=== PATIENT | male | born 1960 | race African-American/Black ===

== ENCOUNTER 2018-06-15 14:42 | Inpatient (IN) | payer OTHER ==
[2018-06-15 16:35] VITALS: BMI 23.1
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
[2018-06-15] MEDS ORDERED: NICOTINE POLACRILEX 2 MG GUM BUC PRN (18:29)
[2018-06-15] MEDS ORDERED: MAGNESIUM HYDROX 2400MG/30ML ORAL SUSPENSION 30 ML CUP PO PRN (18:29)
[2018-06-15] MEDS ORDERED: ACETAMINOPHEN 325 MG TABLET (FP) PO PRN ×2 (18:29)
[2018-06-15] MEDS ORDERED: chlordiazePOXIDE HCL 25 MG CAPSULE PO PRN (18:29)
[2018-06-15] MEDS ORDERED: MENTHOL/PHENOL 1 EACH UD MM PRN (18:29)
[2018-06-15] MEDS ORDERED: hydrOXYzine PAMOATE 25 MG CAPSULE (FP) PO PRN (18:29)
[2018-06-15] MEDS ORDERED: MAG HYDROX/AL HYDROX/SIMETH 30 ML UNIT-DOSE CUP PO PRN (18:29)
[2018-06-15] MEDS ORDERED: METHOCARBAMOL 500 MG TABLET PO PRN (18:29)
[2018-06-15] MEDS ORDERED: MAGNESIUM CITRATE 300 ML BOTTLE PO PRN (18:29)
[2018-06-15] MEDS ORDERED: IBUPROFEN 400 MG TABLET (FP) PO PRN (18:29)
[2018-06-15] MEDS ORDERED: BISMUTH SUBSALICYLATE 524 MG/30 ML UD PO PRN (18:29)
[2018-06-15] MEDS: MELATONIN 5 MG TABLETS PO PRN (22:03)
[2018-06-15] MEDS: chlordiazePOXIDE HCL 25 MG CAPSULE PO SCH (22:03)
[2018-06-15] MEDS: THIAMINE HCL 100 MG TABLET (FP) PO SCH (22:03)
[2018-06-15 23:46] LABS: URINE APPEARANCE CLEAR; URINE BILIRUBIN NEGATIVE (<2.0 mg/dL); URINE COLOR YELLOW; URINE GLUCOSE (UA) NEGATIVE (NEGATIVE); URINE KETONE NEGATIVE (NEGATIVE); URINE LEUK ESTERASE NEGATIVE (NEGATIVE); URINE NITRITE NEGATIVE (NEGATIVE); URINE PROTEIN NEGATIVE (NEGATIVE)
[2018-06-16] MEDS: chlordiazePOXIDE HCL 25 MG CAPSULE PO SCH ×4 (05:26→22:07)
--- NOTE | 2018-06-16 09:12 | CONSULT ---
[facility] Psychiatric Consult - Data Date of interview: 06/16/18 Admission source: [facility] Identifying data: Patient is a 58 year old single male, father of one, unemployed, domiciled, and is supported by [facility]. This is patient's first admission to detox at [facility]. Patient admitted to for alcohol, cocaine, and marijuana dependence. Substance Abuse History: Smoking Cessation. Smoking history: Current every day smoker. Have you smoked in the past 12 months: Yes. Aproximately how many cigarettes per day: 8. Hx Chewing Tobacco Use: No. Initiated information on smoking cessation: Yes. 'Breaking Loose' booklet given: 06/15/18. - Substance & Tx. History. Hx Alcohol Use: Yes. Hx Substance Use: Yes. Substance Use Type : Alcohol. Hx Substance Use Treatment: Yes (Last detox [facility] 2015) . - Substances Abused. Alcohol. Route: Oral. Frequency: Daily. Amount used: liquor- 3 pints, beer- 2 six packs. Age of first use: 14. Date of Last Use: 06/14/18 (10:30 pm ). Crack. Route: Smoking. Frequency: Daily. Amount used: 3gm. Age of first use: 23. Date of Last Use: 06/14/18. Marijuana/Hashish. Route: Smoking. Frequency: Daily. Amount used: 4gm. Age of first use: 17. Date of Last Use: 06/14/18 Medical History: Hep B, HIV Psychiatric History: Patient's first psychiatric contact was in 2005 after he became depressed due to his newly diagnosis of HIV. He saw an outpatient psychiatrist for approximately one year and reports being prescribed seroquel. Since discontinuing treatment in 2006 he denies seeing another psychiatrist. Ms. Luis denies h/o psychiatric hospitalization, and suicide attempt. At present he reports difficulty sleeping. Physical/Sexual Abuse/Trauma History: denies. Mental Status Exam - Mental Status Exam Alert and Oriented to: Time, Place, Person Cognitive Function: Good Patient Appearance: Well Groomed Mood: Euthymic Affect: Mood Congruent Patient Behavior: Cooperative Speech Pattern: Appropriate Voice Loudness: Normal Thought Process: Intact, Goal Oriented Thought Disorder: Not Present Hallucinations: Denies Suicidal Ideation: Denies Homicidal Ideation: Denies Insight/Judgement: Poor Sleep: Poorly Appetite: Fair Muscle strength/Tone: Normal Gait/Station: Normal Psychiatric Findings - Problem List ([place] 1, 2,3) (1) Substance-induced sleep disorder Current Visit: Yes Status: Acute (2) Alcohol dependence with uncomplicated withdrawal Current Visit: Yes Status: Acute (3) Cocaine dependence Current Visit: Yes Status: Acute (4) Marijuana dependence Current Visit: Yes Status: Acute - Initial Treatment Plan Initial Treatment Plan: Psychoeducation provided. Detoxification in progress. Will order Belsomra 10mg qhs prn. Benefits and side effects discussed. Verbal consent given.
[2018-06-16] MEDS: LIDOCAINE 5% TOPICAL PATCH TP SCH (10:02)
[2018-06-16] MEDS: PRENATAL VITAMINS W/ FOLIC ACID TABLET (FP) PO SCH (10:02)
[2018-06-16] MEDS: NICOTINE 14 MG/24 HOURS TOPICAL PATCH TD SCH (10:02)
--- NOTE | 2018-06-16 10:50 | EKG ---
Test Reason : Blood Pressure : / mmHG Vent. Rate : 074 BPM Atrial Rate : 074 BPM P-R Int : 138 ms QRS Dur : 088 ms QT Int : 378 ms P-R-T Axes : 076 072 054 degrees QTc Int : 419 ms NORMAL SINUS RHYTHM MINIMAL VOLTAGE CRITERIA FOR LVH, MAY BE NORMAL VARIANT NO PREVIOUS ECGS AVAILABLE Confirmed by ANSON PEREZ MD ([id number]) on 06/16/2018 10:50:00 AM Referred By: LORENA MANE Confirmed By:ANSON PEREZ MD
[2018-06-16 11:25] LABS: HEMATOCRIT 37.9 % (35.4-49); HEMOGLOBIN 12.5 GM/dL (11.7-16.9); MCH 28.5 pg (25.7-33.7); MEAN CELL VOLUME 86.3 fl (80-96); MEAN PLT VOLUME 8.1 fl (7.5-11.1); PLATELET COUNT 175 K/MM3 (134-434); RBC 4.39 M/mm3 (4.00-5.60); RDW 15.8 % (11.9-15.9); WHITE BLOOD COUNT 1.8 K/mm3 (4.0-10.0)
[2018-06-16 11:51] LABS: ALBUMIN 2.9 g/dl (3.4-5.0); ALK PHOS 65 U/L (45-117); ANION GAP 5 MMOL/L (8-16); BILIRUBIN,TOTAL 0.3 mg/dL (0.2-1); BLOOD UREA NITROGEN 10 mg/dL (7-18); CALCIUM 8.4 mg/dL (8.5-10.1); CHLORIDE 106 mmol/L (98-107); CO2 27 mmol/L (21-32); CREATININE 0.9 mg/dL (0.55-1.3); GLUCOSE,RANDOM 101 mg/dL (74-106); POTASSIUM 3.9 mmol/L (3.5-5.1); SGOT/AST 23 U/L (15-37); SGPT/ALT 22 U/L (13-61); SODIUM 137 mmol/L (136-145); TOT PROT 6.9 g/dl (6.4-8.2)
--- NOTE | 2018-06-16 14:29 | PN ---
S CIWA - CIWA Score Nausea/Vomitin-Mild Nausea/No Vomiting Muscle Tremors: 1-None Visible, but [place] Anxiety: 1-Mildly Anxious Agitation: 1-Slight > Activity Paroxysmal Sweats: No Perspiration Orientation: 0-Oriented Tacttile Disturbances: 0-None Auditory Disturbances: 0-None Visual Disturbances: 0-None Headache: 0-None Present CIWA-Ar Total Score: 4 [facility] Progress Note (SOAP) Subjective: pt came in yesterday for alcohol detox- states he feels OK on alcohol detox protocol O: Vital Signs - 24 hr 06/15/18 06/15/18 06/15/18 16:34 19:23 22:15 Temperature 97.5 F L 98.1 F 98.2 F Pulse Rate 79 74 80 Respiratory 18 18 18 Rate Blood Pressure 117/69 144/78 139/66 06/16/18 06/16/18 06/16/18 00:30 03:30 06:00 Temperature 97.7 F Pulse Rate 74 Respiratory 18 18 18 Rate Blood Pressure 129/75 06/16/18 06/16/18 09:22 13:54 Temperature 97.5 F L 96.4 F L Pulse Rate 78 74 Respiratory 18 18 Rate Blood Pressure 100/57 L 127/64 Laboratory Tests 06/15/18 06/16/18 06/16/18 22:00 07:00 07:00 WBC 1.8 L* RBC 4.39 Hgb 12.5 Hct 37.9 MCV 86.3 MCH 28.5 MCHC 33.0 RDW 15.8 Plt Count 175 MPV 8.1 Sodium 137 Potassium 3.9 Chloride 106 Carbon Dioxide 27 Anion Gap 5 L BUN 10 Creatinine 0.9 Creat Clearance w eGFR 87.29 Random Glucose 101 Calcium 8.4 L Total Bilirubin 0.3 AST 23 ALT 22 Alkaline Phosphatase 65 Total Protein 6.9 Albumin 2.9 L Urine Color Yellow Urine Appearance Clear Urine pH 6.0 Ur Specific [employer] 1.022 Urine Protein Negative Urine Glucose (UA) Negative Urine Ketones Negative Urine Blood Negative Urine Nitrite Negative Urine Bilirubin Negative Urine Urobilinogen 1.0 Ur Leukocyte Esterase Negative RPR Titer 06/16/18 07:00 WBC RBC Hgb Hct MCV MCH MCHC RDW Plt Count MPV Sodium Potassium Chloride Carbon Dioxide Anion Gap BUN Creatinine Creat Clearance w eGFR Random Glucose Calcium Total Bilirubin AST ALT Alkaline Phosphatase Total Protein Albumin Urine Color Urine Appearance Urine pH Ur Specific [employer] Urine Protein Urine Glucose (UA) Urine Ketones Urine Blood Urine Nitrite Urine Bilirubin Urine Urobilinogen Ur Leukocyte Esterase RPR Titer Nonreactive low WBC- pt with HIV low alb low Ca- a/p: continue alcohol detox protocol-low WBC likely due to HIV/AIDS- repeat tomorrow with diff, f/u with PCP at discharge
[2018-06-16] MEDS ORDERED: SUVOREXANT 10 MG TABLET PO PRN (22:00)
[2018-06-16] MEDS: THIAMINE HCL 100 MG TABLET (FP) PO SCH (22:07)
[2018-06-16] MEDS: LIDOCAINE PATCH REMOVAL MC SCH (22:08)
[2018-06-17] MEDS: chlordiazePOXIDE HCL 25 MG CAPSULE PO SCH ×3 (05:58→17:33)
[2018-06-17] MEDS: NICOTINE 14 MG/24 HOURS TOPICAL PATCH TD SCH (10:32)
[2018-06-17] MEDS: LIDOCAINE 5% TOPICAL PATCH TP SCH ×2 (10:32→10:35)
[2018-06-17] MEDS: PRENATAL VITAMINS W/ FOLIC ACID TABLET (FP) PO SCH (10:33)
--- NOTE | 2018-06-17 10:51 | PN ---
[facility] CIWA - CIWA Score Nausea/Vomitin-No Nausea/No Vomiting Muscle Tremors: 2 Anxiety: 2 Agitation: 2 Paroxysmal Sweats: 2 Orientation: 0-Oriented Tacttile Disturbances: 0-None Auditory Disturbances: 0-None Visual Disturbances: 0-None Headache: 0-None Present CIWA-Ar Total Score: 8 S Progress Note (SOAP) Subjective: back pain Objective: 06/17/18 10:51 Vital Signs Temperature 97.3 F L 06/17/18 09:36 Pulse Rate 82 06/17/18 09:36 Respiratory Rate 18 06/17/18 09:36 Blood Pressure 136/73 06/17/18 09:36 O2 Sat by Pulse Oximetry (%) Laboratory Last Values WBC 1.8 K/mm3 (4.0-10.0) L* 06/16/18 07:00 RBC 4.39 M/mm3 (4.00-5.60) 06/16/18 07:00 Hgb 12.5 GM/dL (11.7-16.9) 06/16/18 07:00 Hct 37.9 % (35.4-49) 06/16/18 07:00 MCV 86.3 fl (80-96) 06/16/18 07:00 MCH 28.5 pg (25.7-33.7) 06/16/18 07:00 MCHC 33.0 g/dl (32.0-35.9) 06/16/18 07:00 RDW 15.8 % (11.9-15.9) 06/16/18 07:00 Plt Count 175 K/MM3 (134-434) 06/16/18 07:00 MPV 8.1 fl (7.5-11.1) 06/16/18 07:00 Sodium 137 mmol/L (136-145) 06/16/18 07:00 Potassium 3.9 mmol/L (3.5-5.1) 06/16/18 07:00 Chloride 106 mmol/L (98-107) 06/16/18 07:00 Carbon Dioxide 27 mmol/L (21-32) 06/16/18 07:00 Anion Gap 5 MMOL/L (8-16) L 06/16/18 07:00 BUN 10 mg/dL (7-18) 06/16/18 07:00 Creatinine 0.9 mg/dL (0.55-1.3) 06/16/18 07:00 Creat Clearance w eGFR 87.29 (>60) 06/16/18 07:00 Random Glucose 101 mg/dL (74-106) 06/16/18 07:00 Calcium 8.4 mg/dL (8.5-10.1) L 06/16/18 07:00 Total Bilirubin 0.3 mg/dL (0.2-1) 06/16/18 07:00 AST 23 U/L (15-37) 06/16/18 07:00 ALT 22 U/L (13-61) 06/16/18 07:00 Alkaline Phosphatase 65 U/L (45-117) 06/16/18 07:00 Total Protein 6.9 g/dl (6.4-8.2) 06/16/18 07:00 Albumin 2.9 g/dl (3.4-5.0) L 06/16/18 07:00 Urine Color Yellow 06/15/18 22:00 Urine Appearance Clear 06/15/18 22:00 Urine pH 6.0 (5.0-8.0) 06/15/18 22:00 Ur Specific [place] 1.022 (1.010-1.035) 06/15/18 22:00 Urine Protein Negative (NEGATIVE) 06/15/18 22:00 Urine Glucose (UA) Negative (NEGATIVE) 06/15/18 22:00 Urine Ketones Negative (NEGATIVE) 06/15/18 22:00 Urine Blood Negative (NEGATIVE) 06/15/18 22:00 Urine Nitrite Negative (NEGATIVE) 06/15/18 22:00 Urine Bilirubin Negative (<2.0 mg/dL) 06/15/18 22:00 Urine Urobilinogen 1.0 mg/dL (0.2-1.0) 06/15/18 22:00 Ur Leukocyte Esterase Negative (NEGATIVE) 06/15/18 22:00 RPR Titer Nonreactive (NONREACTIVE) 06/16/18 07:00 repeat labs pending 06/17/18 14:30 Assessment: 06/17/18 14:30 AOx3 no distress full ROM ambulating in the unit withdrawal sx increase po fluids continue detox continue to monitor
[2018-06-17 11:05] LABS: BASO % 0.6 % (0-2.0); EOS % 0.5 % (0-4.5); HEMATOCRIT 37.9 % (35.4-49); HEMOGLOBIN 12.3 GM/dL (11.7-16.9); LYMPH % 40.4 % (8-40); MCH 27.9 pg (25.7-33.7); MCHC 32.4 g/dl (32.0-35.9); MEAN CELL VOLUME 86.2 fl (80-96); MEAN PLT VOLUME 8.4 fl (7.5-11.1); MONO % 14.3 % (3.8-10.2); NEUT % 44.2 % (42.8-82.8); PLATELET COUNT 173 K/MM3 (134-434); RDW 15.5 % (11.9-15.9)
--- NOTE | 2018-06-17 14:31 | PN ---
[facility] Progress Note Note: Vital Signs Temperature 97.5 F L 06/17/18 13:32 Pulse Rate 75 06/17/18 13:32 Respiratory Rate 16 06/17/18 13:32 Blood Pressure 147/78 06/17/18 13:32 O2 Sat by Pulse Oximetry (%) Laboratory Last Values WBC 2.0 K/mm3 (4.0-10.0) L 06/17/18 07:30 RBC 4.40 M/mm3 (4.00-5.60) 06/17/18 07:30 Hgb 12.3 GM/dL (11.7-16.9) 06/17/18 07:30 Hct 37.9 % (35.4-49) 06/17/18 07:30 MCV 86.2 fl (80-96) 06/17/18 07:30 MCH 27.9 pg (25.7-33.7) 06/17/18 07:30 MCHC 32.4 g/dl (32.0-35.9) 06/17/18 07:30 RDW 15.5 % (11.9-15.9) 06/17/18 07:30 Plt Count 173 K/MM3 (134-434) 06/17/18 07:30 MPV 8.4 fl (7.5-11.1) 06/17/18 07:30 Absolute Neuts (auto) 0.9 K/mm3 (1.5-8.0) L 06/17/18 07:30 Neutrophils % 44.2 % (42.8-82.8) 06/17/18 07:30 Lymphocytes % 40.4 % (8-40) H 06/17/18 07:30 Monocytes % 14.3 % (3.8-10.2) H 06/17/18 07:30 Eosinophils % 0.5 % (0-4.5) 06/17/18 07:30 Basophils % 0.6 % (0-2.0) 06/17/18 07:30 Nucleated RBC % 0 % (0-0) 06/17/18 07:30 Sodium 137 mmol/L (136-145) 06/16/18 07:00 Potassium 3.9 mmol/L (3.5-5.1) 06/16/18 07:00 Chloride 106 mmol/L (98-107) 06/16/18 07:00 Carbon Dioxide 27 mmol/L (21-32) 06/16/18 07:00 Anion Gap 5 MMOL/L (8-16) L 06/16/18 07:00 BUN 10 mg/dL (7-18) 06/16/18 07:00 Creatinine 0.9 mg/dL (0.55-1.3) 06/16/18 07:00 Creat Clearance w eGFR 87.29 (>60) 06/16/18 07:00 Random Glucose 101 mg/dL (74-106) 06/16/18 07:00 Calcium 8.4 mg/dL (8.5-10.1) L 06/16/18 07:00 Total Bilirubin 0.3 mg/dL (0.2-1) 06/16/18 07:00 AST 23 U/L (15-37) 06/16/18 07:00 ALT 22 U/L (13-61) 06/16/18 07:00 Alkaline Phosphatase 65 U/L (45-117) 06/16/18 07:00 Total Protein 6.9 g/dl (6.4-8.2) 06/16/18 07:00 Albumin 2.9 g/dl (3.4-5.0) L 06/16/18 07:00 Urine Color Yellow 06/15/18 22:00 Urine Appearance Clear 06/15/18 22:00 Urine pH 6.0 (5.0-8.0) 06/15/18 22:00 Ur Specific [place] 1.022 (1.010-1.035) 06/15/18 22:00 Urine Protein Negative (NEGATIVE) 06/15/18 22:00 Urine Glucose (UA) Negative (NEGATIVE) 06/15/18 22:00 Urine Ketones Negative (NEGATIVE) 06/15/18 22:00 Urine Blood Negative (NEGATIVE) 06/15/18 22:00 Urine Nitrite Negative (NEGATIVE) 06/15/18 22:00 Urine Bilirubin Negative (<2.0 mg/dL) 06/15/18 22:00 Urine Urobilinogen 1.0 mg/dL (0.2-1.0) 06/15/18 22:00 Ur Leukocyte Esterase Negative (NEGATIVE) 06/15/18 22:00 RPR Titer Nonreactive (NONREACTIVE) 03/22/19 07:00 WBC improved from 1.8 to 2.0 patient reports no symptoms at this time continue to monitor Patient to follow up with primary care provider upon discharge
[2018-06-17] MEDS: LIDOCAINE PATCH REMOVAL MC SCH (22:09)
[2018-06-17] MEDS: chlordiazePOXIDE HCL 10 MG CAPSULE PO SCH (22:09)
[2018-06-17] MEDS: MELATONIN 5 MG TABLETS PO PRN (22:09)
[2018-06-17] MEDS: THIAMINE HCL 100 MG TABLET (FP) PO SCH (22:09)
[2018-06-17] MEDS ORDERED: chlordiazePOXIDE HCL 10 MG CAPSULE PO PRN (23:00)
[2018-06-18] MEDS: chlordiazePOXIDE HCL 10 MG CAPSULE PO SCH ×3 (05:53→17:24)
[2018-06-18] MEDS: PRENATAL VITAMINS W/ FOLIC ACID TABLET (FP) PO SCH (10:28)
[2018-06-18] MEDS: LIDOCAINE 5% TOPICAL PATCH TP SCH (10:28)
[2018-06-18] MEDS: NICOTINE 14 MG/24 HOURS TOPICAL PATCH TD SCH (10:28)
--- NOTE | 2018-06-18 16:07 | PN ---
[facility] Progress Note (SOAP) Subjective: Feels extremely tired Objective: 06/18/18 16:06 Last Vital Signs Temp Pulse Resp BP Pulse Ox 97.9 F 77 18 131/83 06/18/18 13:14 06/18/18 13:14 06/18/18 13:14 06/18/18 13:14 Laboratory Tests 06/15/18 06/16/18 06/16/18 22:00 07:00 07:00 WBC 1.8 L* RBC 4.39 Hgb 12.5 Hct 37.9 MCV 86.3 MCH 28.5 MCHC 33.0 RDW 15.8 Plt Count 175 MPV 8.1 Absolute Neuts (auto) Neutrophils % Lymphocytes % Monocytes % Eosinophils % Basophils % Nucleated RBC % Sodium 137 Potassium 3.9 Chloride 106 Carbon Dioxide 27 Anion Gap 5 L BUN 10 Creatinine 0.9 Creat Clearance w eGFR 87.29 Random Glucose 101 Calcium 8.4 L Total Bilirubin 0.3 AST 23 ALT 22 Alkaline Phosphatase 65 Total Protein 6.9 Albumin 2.9 L Urine Color Yellow Urine Appearance Clear Urine pH 6.0 Ur Specific [place] 1.022 Urine Protein Negative Urine Glucose (UA) Negative Urine Ketones Negative Urine Blood Negative Urine Nitrite Negative Urine Bilirubin Negative Urine Urobilinogen 1.0 Ur Leukocyte Esterase Negative RPR Titer 06/16/18 06/17/18 07:00 07:30 WBC 2.0 L RBC 4.40 Hgb 12.3 Hct 37.9 MCV 86.2 MCH 27.9 MCHC 32.4 RDW 15.5 Plt Count 173 MPV 8.4 Absolute Neuts (auto) 0.9 L Neutrophils % 44.2 Lymphocytes % 40.4 H Monocytes % 14.3 H Eosinophils % 0.5 Basophils % 0.6 Nucleated RBC % 0 Sodium Potassium Chloride Carbon Dioxide Anion Gap BUN Creatinine Creat Clearance w eGFR Random Glucose Calcium Total Bilirubin AST ALT Alkaline Phosphatase Total Protein Albumin Urine Color Urine Appearance Urine pH Ur Specific [place] Urine Protein Urine Glucose (UA) Urine Ketones Urine Blood Urine Nitrite Urine Bilirubin Urine Urobilinogen Ur Leukocyte Esterase RPR Titer Nonreactive Labs reviewed Assessment: 06/18/18 16:07 Withdrawal symptoms Plan: Continue detox Encouraged PO water intake
--- NOTE | 2018-06-18 22:10 | PN ---
[facility] Progress Note Note: 1 was notified by Ms. Manju Grullon that patient was tarchycardic. EkG ordered and indicates Supraventricular tachycardia with occasiona prematue ventricular complexes. Patient is being sent to ER for further evaluation. Endorsed to Dr. Miller Vital Signs Temperature 97.9 F 06/18/18 22:09 Pulse Rate 149 H 06/18/18 22:09 Respiratory Rate 18 06/18/18 22:09 Blood Pressure 108/61 06/18/18 22:10 O2 Sat by Pulse Oximetry (%)
[2018-06-18 22:11] VITALS: PULSE 149; TEMP 97.9
[2018-06-18 22:12] VITALS: BP 108/61
[2018-06-18] MEDS: LIDOCAINE PATCH REMOVAL MC SCH (22:48)
[2018-06-18] MEDS: THIAMINE HCL 100 MG TABLET (FP) PO SCH (22:50)
[2018-06-18] MEDS ORDERED: chlordiazePOXIDE HCL 10 MG CAPSULE PO SCH (23:00)
--- NOTE | 2018-06-19 00:53 | HP ---
CHIEF COMPLAINT: PCP: HISTORY OF PRESENT ILLNESS: ER course was notable for: (1) (2) (3) Recent Travel: PAST MEDICAL HISTORY: PAST SURGICAL HISTORY: Social History: Smoking: Alcohol: Drugs: Family History: Allergies Pork/Porcine Containing Products Allergy (Verified 06/18/18 23:12) HOME MEDICATIONS: Home Medications Medication Instructions Recorded Elviteg/Cob/Emtri/Tenof Alafen 1 each PO DAILY 06/15/18 [Genvoya (Non-Formulary)] Zolpidem Tartrate [Ambien] 10 mg PO HS 06/15/18 REVIEW OF SYSTEMS CONSTITUTIONAL: Absent: fever, chills, diaphoresis, generalized weakness, malaise, loss of appetite, weight change HEENT: Absent: rhinorrhea, nasal congestion, throat pain, throat swelling, difficulty swallowing, mouth swelling, ear pain, eye pain, visual changes CARDIOVASCULAR: Absent: chest pain, syncope, palpitations, irregular heart rate, lightheadedness , peripheral edema RESPIRATORY: Absent: cough, shortness of breath, dyspnea with exertion, orthopnea, wheezing, stridor, hemoptysis GASTROINTESTINAL: Absent: abdominal pain, abdominal distension, nausea, vomiting, diarrhea, constipation, melena, hematochezia GENITOURINARY: Absent: dysuria, frequency, urgency, hesitancy, hematuria, flank pain, genital pain MUSCULOSKELETAL: Absent: myalgia, arthralgia, joint swelling, back pain, neck pain SKIN: Absent: rash, itching, pallor HEMATOLOGIC/IMMUNOLOGIC: Absent: easy bleeding, easy bruising, lymphadenopathy, frequent infections ENDOCRINE: Absent: unexplained weight gain, unexplained weight loss, heat intolerance, cold intolerance NEUROLOGIC: Absent: headache, focal weakness or paresthesias, dizziness, unsteady gait, seizure, mental status changes, bladder or bowel incontinence PSYCHIATRIC: Absent: anxiety, depression, suicidal or homicidal ideation, hallucinations. PHYSICAL EXAMINATION Vital Signs - 24 hr 06/18/18 06/18/18 06/18/18 03:30 06:00 06:30 Temperature 96.8 F L Pulse Rate 72 Respiratory 18 18 18 Rate Blood Pressure 134/65 06/18/18 06/18/18 06/18/18 10:00 13:14 17:44 Temperature 96.6 F L 97.9 F 98.3 F Pulse Rate 75 77 93 H Respiratory 18 18 18 Rate Blood Pressure 136/74 131/83 118/71 06/18/18 06/18/18 22:09 22:10 Temperature 97.9 F Pulse Rate 149 H Respiratory 18 Rate Blood Pressure 139/69 108/61 GENERAL: Awake, alert, and fully oriented, in no acute distress. HEAD: Normal with no signs of trauma. EYES: Pupils equal, round and reactive to light, extraocular movements intact, sclera anicteric, conjunctiva clear. No lid lag. EARS, NOSE, THROAT: Ears normal, nares patent, oropharynx clear without exudates. Moist mucous membranes. NECK: Normal range of motion, supple without lymphadenopathy, JVD, or masses. LUNGS: Breath sounds equal, clear to auscultation bilaterally. No wheezes, and no crackles. No accessory muscle use. HEART: Regular rate and rhythm, normal S1 and S2 without murmur, rub or gallop. ABDOMEN: Soft, nontender, not distended, normoactive bowel sounds, no guarding, no rebound, no masses. No hepatomegaly or splenomegaly. MUSCULOSKELETAL: Normal range of motion at all joints. No bony deformities or tenderness. No CVA tenderness. UPPER EXTREMITIES: 2+ pulses, warm, well-perfused. No cyanosis. No clubbing. No peripheral edema. LOWER EXTREMITIES: 2+ pulses, warm, well-perfused. No calf tenderness. No peripheral edema. NEUROLOGICAL: Cranial nerves II-XII intact. Normal speech. Normal gait. PSYCHIATRIC: Cooperative. Good eye contact. Appropriate mood and affect. SKIN: Warm, dry, normal turgor, no rashes or lesions noted, normal capillary refill. ASSESSMENT/PLAN:
--- NOTE | 2018-06-19 10:27 | EKG ---
Test Reason : Blood Pressure : / mmHG Vent. Rate : 145 BPM Atrial Rate : 141 BPM P-R Int : 000 ms QRS Dur : 090 ms QT Int : 286 ms P-R-T Axes : 000 068 007 degrees QTc Int : 444 ms SUPRAVENTRICULAR TACHYCARDIA WITH OCCASIONAL PREMATURE VENTRICULAR COMPLEXES VOLTAGE CRITERIA FOR LEFT VENTRICULAR HYPERTROPHY NONSPECIFIC ST ABNORMALITY ABNORMAL ECG WHEN COMPARED WITH ECG OF 15-JUN-2018 18:03, PREMATURE VENTRICULAR COMPLEXES ARE NOW PRESENT VENT. RATE HAS INCREASED BY 71 BPM Confirmed by GARETH LANGLEY MD ([id number]) on 06/19/2018 10:26:47 AM Referred By: Confirmed By:GARETH LANGLEY MD
== END 2018-06-19 07:30 | disposition short-term general hospital (02) | DRG 774 ==
LOC: YASAS 14:42 → Y6N 18:07
PROVIDERS: ADMIT Surgery; ATTEND Surgery
PROC: HZ2ZZZZ Detoxification Services for Substance Abuse Treatment (ICD-10-PCS; principal; 2018-06-15)
DX: F10.230 Alcohol dependence with withdrawal, uncomplicated (principal); F14.20 Cocaine dependence, uncomplicated; F12.20 Cannabis dependence, uncomplicated; F17.210 Nicotine dependence, cigarettes, uncomplicated; F19.282 Other psychoactive substance dependence with psychoactive substance-induced sleep disorder; F32.9 Major depressive disorder, single episode, unspecified; Z21 Asymptomatic human immunodeficiency virus [HIV] infection status; G47.00 Insomnia, unspecified; M54.31 Sciatica, right side; R63.4 Abnormal weight loss; Z68.23 Body mass index [BMI] 23.0-23.9, adult
CPT/HCPCS: 36415; 71046-TC-FY; 80053; 81003; 85025; 85027; 86593; 93005; 93010

== ENCOUNTER 2018-06-18 22:19 | Observation (INO) | payer OTHER ==
--- NOTE | 2018-06-18 22:28 | PDOC ---
History of Present Illness - General Stated Complaint: TACHYCARDIA, BACK PAIN Time Seen by Provider: 06/18/18 22:28 - History of Present Illness Initial Comments: Coy Luis is a 58yo man with a PMH of HIV and polysubstance abuse (crack cocaine, marijuana, alcohol, cigarettes) who presents from [facility] with asymptomatic tachycardia. He reports that he was admitted at detox several days ago and has been doing well since that time. Tonight, staff was checking routine vitals and noted a HR in the 150's. Mr Luis reports it was as high as 163 at one point this evening. He had an EKG completed at [facility] indicating SVT with several PVCs noted, and he was sent to the ED for further evaluation. Mr Luis states that he had no idea his heart rate was fast until he was told. He denies any sensation of his heart racing, palpitations, SOB, lightheadedness, chest pain, diaphoresis, or any other new symptom. He denies any drug use over the past day, saying that he last used cocaine on the . He reports doing well at detox on the prescribed meds and has not had any shaking, nausea, vomiting, change in bowel habits, or other problems. He says that he has been on HIV meds for many years and "takes them when he has them" but often does not have his meds available because he is "on the street getting high." Recently he has not been consistently taking his meds, and he is not sure what his t-cell count or viral load are at this point. He denies any symptoms of infection, however, including fever/chills, cough, rash, dysuria, or congestion. Past History - Past Medical History Allergies/Adverse Reactions: Allergies Allergy/AdvReac Type Severity Reaction Status Date / Time Pork/Porcine Containing Allergy Verified 06/18/18 23:12 Products Home Medications: Ambulatory Orders Elviteg/Cob/Emtri/Tenof Alafen [Genvoya (Non-Formulary)] 1 each PO DAILY Zolpidem Tartrate [Ambien] 10 mg PO HS 06/15/18 Anemia: No Asthma: No Cancer: No Cardiac Disorders: No CVA: No COPD: No CHF: No Dementia: No Diabetes: No GI Disorders: No Disorders: No HTN: No Hypercholesterolemia: No Kidney Stones: No Liver Disease: Yes (hep B ) Seizures: No Thyroid Disease: No - Surgical History Abdominal Surgery: No Appendectomy: No Cardiac Surgery: No Cholecystectomy: No Lung Surgery: No Neurologic Surgery: No Orthopedic Surgery: No - Reproductive History Testicular Surgery: No - Suicide/Smoking/Psychosocial Hx Smoking History: Current every day smoker Have you smoked in the past 12 months: Yes Number of Cigarettes Smoked Daily: 8 'Breaking Loose' booklet given: 06/15/18 Hx Alcohol Use: Yes Drug/Substance Use Hx: Yes Substance Use Type: Alcohol Hx Substance Use Treatment: Yes (Last detox [facility] 2016) Review of Systems - Review of Systems Comments:: General: No fevers, no chills, no weight or appetite change, no malaise HEENT: No changes in vision, no changes in hearing, no congestion, no sore throat CV: No chest pain, no palpitations, no LE edema Pulm: No SOB, no cough, no wheezing GI: No nausea or vomiting, no change in bowel habits, no melena : No frequency, no urgency, no dysuria Musc: No back pain, no joint swelling, no recent injury Skin: No rash, no lesions, no erythema Endo: No excessive thirst, no heat/cold intolerance Heme: No unusual bruising or bleeding, no swollen glands Neuro: No syncope, no numbness/tingling, no focal weakness Vasc: No claudication Psych: No recent change in mood, no SI or HI *Physical Exam - Physical Exam Comments: General: Comfortable, no acute distress HEENT: PERRL, EOMI, MMM, voice normal, normal neck ROM Cards: Tachycardic, regular Pulm: Comfortable on room air, clear to auscultation bilaterally Abd: Soft, nontender, nondistended : No CVA tenderness Ext: Atraumatic. No LE edema. ROM intact Vasc: Extremities WWP. Skin: Normal color, no rashes or lesions Neuro: A&Ox3, CN grossly intact, normal speech, motor/sensory grossly intact and symmetric Psych: Mood appropriate to situation ED Treatment Course - LABORATORY CBC & Chemistry Diagram: 06/18/18 23:15 06/18/18 23:15 Medical Decision Making - Medical Decision Making 06/18/18 23:24 Coy Luis is a 58yo man with a PMH of HIV and polysubstance abuse (crack cocaine, marijuana, alcohol, cigarettes) who presents from [facility] with asymptomatic SVT, HR around 150. - Has been admitted at detox for 3 days, denies any cocaine use since 06/14 - Other than tachycardia, benign physical exam - EKG completed. SVT, HR 147, normal axis. Regular but p-waves difficult to see due to rate - CBC, CMP, trop, CXR ordered - Continuous cardiac monitoring - Plan to give adenosine 06/18/18 23:44 - Initial adenosine given without Dr Matthews or me present. Per nursing staff in the room, no change. However, was not on continuous rhythm strip printout - 12mg adenosine ordered for repeat. Will monitor while med is given 06/19/18 00:03 - 2nd dose, 12mg adenosine, given while printing rhythm strip. No sudden change when giving, but subsequent HR approx 100/min - Giving PO diltiazem for continued rate control 06/19/18 00:09 - Labs reviewed. Notable for leukopenia, WBC 2.9. BUN also increased to 20 from 10 on 06/16/18. Ordering 1L NS bolus for likely mild dehydration. - CXR completed. No acute pathology appreciated. - Microblog sent for tele obs admission 06/19/18 00:25 - Spoke to Dr Becerra on medicine team. Requesting TSH to be added to labs - Will admit to tele obs. Seen and discussed with Dr Matthews. Jo Graham PGY1 *DC/Admit/Observation/Transfer Diagnosis at time of Disposition: Supraventricular tachycardia - Discharge Dispostion Condition at time of disposition: Fair Decision to Admit order: Yes - Referrals - Patient Instructions - Post Discharge Activity
[2018-06-18 23:12] VITALS: BMI 23.1
[2018-06-18] MEDS ORDERED: ADENOSINE 6 MG/2 ML VIAL IVPUSH ONE ×4 (23:13→23:54)
[2018-06-18 23:25] LABS: EOS % 0.3 % (0-4.5); HEMATOCRIT 42.2 % (35.4-49); HEMOGLOBIN 14.2 GM/dL (11.7-16.9); RBC 4.88 M/mm3 (4.00-5.60); WHITE BLOOD COUNT 2.9 K/mm3 (4.0-10.0)
--- NOTE | 2018-06-18 23:33 | PDOC ---
Attending Attestation - ED Attending Attestation I have performed the following: I have examined & evaluated the patient, The case was reviewed & discussed with the resident, I agree w/resident's findings & plan - HPI HPI: 06/18/18 23:38 The patient is a 58 year old male, with a significant past medical history of HIV (noncompliant with medications) and polysubstance abuse (alcohol, cocaine, and marijuana), who presents to the emergency department with, tachycardia. As per [facility], patient has been admitted since 05/18 and on routine vital check he was found to be tachycardic to 145bpm. While in the ED, patient has no complaints. He denies any recent fevers, chills, headache or dizziness. He denies any recent nausea, vomit, diarrhea or constipation. He denies any recent chest pain or shortness of breath. He denies any recent dysuria, frequency, urgency or hematuria. Allergies: Pork/Porcine Products. Past surgical history: None reported. Social History: At [facility] (admitted 05/18 for alcohol, cocaine, and marijuana). - Physicial Exam PE: 06/18/18 23:47 GENERAL: Thin. Well-appearing, well-nourished. No apparent distress. HEENT: Normocephalic, atraumatic. PERRL, EOM intact. CARDIOVASCULAR: +Tachycardic. PULMONARY: Clear to auscultation bilaterally. ABDOMEN: Flat. Soft, non-distended, non-tender. EXTREMITIES: Normal ROM in all four extremities. No gross deformities. SKIN: Warm, dry. No rash NEUROLOGICAL: ANOx3. Alert, awake, appropriate. Normal speech. Gait is normal without ataxia. No focal neurological deficits. PSYCHIATRIC: Cooperative. Good eye contact. Appropriate mood and affect. = <Lance Rodriguez - Last Filed: 06/19/18 00:07> - Resident Resident Name: Jo Graham - Medical Decision Making 06/19/18 00:08 pt was given adenosine 6 mg, them adenosine 12 mg and his rhythm broke from SVT of 149 to nsr @ 99 bpm 06/19/18 01:59 pt admitted to OBS tele <Leanne Matthews - Last Filed: 06/19/18 02:00> Attestations - Attestations 06/18/18 23:49 Documentation prepared by Lance Rodriguez, acting as medical laboratory assistant for Leanne Matthews MD. <Lance Rodriguez - Last Filed: 06/19/18 00:07>
[2018-06-18 23:43] LABS: BASO % 1.1 % (0-2.0); LYMPH % 40.7 % (8-40); MCH 29.2 pg (25.7-33.7); MCHC 33.8 g/dl (32.0-35.9); MEAN CELL VOLUME 86.4 fl (80-96); MEAN PLT VOLUME 8.3 fl (7.5-11.1); MONO % 13.2 % (3.8-10.2); NEUT % 44.7 % (42.8-82.8); PLATELET COUNT 194 K/MM3 (134-434); RDW 15.8 % (11.9-15.9)
[2018-06-18 23:46] LABS: PLATELET ESTIMATE ADEQUATE
[2018-06-18 23:53] LABS: ALBUMIN 3.4 g/dl (3.4-5.0); ALK PHOS 77 U/L (45-117); ANION GAP 4 MMOL/L (8-16); BILIRUBIN,TOTAL 0.2 mg/dL (0.2-1); BLOOD UREA NITROGEN 20 mg/dL (7-18); CALCIUM 9.5 mg/dL (8.5-10.1); CHLORIDE 107 mmol/L (98-107); CO2 29 mmol/L (21-32); CREATININE 1.1 mg/dL (0.55-1.3); GLUCOSE,RANDOM 98 mg/dL (74-106); MAGNESIUM 2.4 mg/dL (1.8-2.4); PHOSPHOROUS 6.1 mg/dL (2.5-4.9); POTASSIUM 4.8 mmol/L (3.5-5.1); SGOT/AST 30 U/L (15-37); SGPT/ALT 35 U/L (13-61); SODIUM 140 mmol/L (136-145); TOT PROT 8.1 g/dl (6.4-8.2)
[2018-06-19] MEDS ORDERED: dilTIAZem HCL 30 MG TABLET (FP) PO ONE (00:04)
[2018-06-19] MEDS ORDERED: SODIUM CHLORIDE 0.9% 500 ML INFUS.BAG IV ONE (00:24)
[2018-06-19] MEDS ORDERED: dilTIAZem HCL 30 MG TABLET (FP) ONE (00:37)
[2018-06-19] MEDS ORDERED: KETOROLAC TROMETHAMINE 15 MG/ML VIAL IVPUSH PRN (00:57)
[2018-06-19] MEDS ORDERED: SODIUM CHLORIDE 1,000 ML IV SCH (01:00)
[2018-06-19] MEDS ORDERED: METOPROLOL TARTRATE 25 MG TABLET (FP) PO PRN (01:09)
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
[2018-06-19] MEDS ORDERED: dilTIAZem HCL 50 MG/10 ML - 10 ML VIAL IVPUSH PRN (01:21)
--- NOTE | 2018-06-19 01:42 | PN ---
Teaching Attending Note Name of Resident: Bandar Becerra ATTENDING PHYSICIAN STATEMENT I saw and evaluated the patient. I reviewed the resident's note and discussed the case with the resident. I agree with the resident's findings and plan as documented. SUBJECTIVE: Seen and examined; please refer to resident note for further historical discussion. Briefly, this is a 58 y/o male with a PMH significant for HIV, polysubstance abuse including cocaine, presents to the hospital from [facility]. He was at [facility] and on PM VS he was noted to have HR in 140s so he was taken to ER and found to be in SVT. He was given diltiazem, adenosine and this broke the rhythm and he is now in NSR in the 100s. He was asymptomatic throughout the ordeal. He is noncompliant with his HIV tx and is trying to leave his doctor in [place] who he hasn't seen in some time and go to [facility] for HIV tx but has not gotten in yet; has been off medications for 3 months ( was on Genvoya). TSH elevated in ER 10 sys ROS done and negative aside from HPI PMH, PSH, Family hx, Social hx reviewed Medications reviewed; noncompliant with tx OBJECTIVE: VS, labs, imaging reviewed. Now in NSR, RRR s1/2 no mgr NAD, AAO, resting comfortably in bed NC AT EOMI PERRLA Lungs CTAB, w/ sym exp NT ND +BS CN-12 wnl, no fnd Normal mood, appropriate affect EKGs reviewed Echo pending ASSESSMENT AND PLAN: Patient with a history of polysubstance abuse and HIV presents with SVT that has been broken with adenosine and is now in NSR 1) SVT -Resolved and now in NSR; was asx during and continues to be. -Monitor on telemetry, check echo, place on dilt 30 Q6 given cocaine hx will avoid BB -Monitor lytes -Consider CV consultation in AM 2) HIV complicated by noncompliance -Check CD4, VL -Consult Dr. Anderson for medication continuance while here. Was on ppx meds in the past. 3) Polysubstance abuse -Continued followup; need to coordinate DC with [facility]. Consult Social Work 4) TSH elevation -Check FT4 5) Noncompliance -Exchange Consultant prior to DC 6) Leukopenia -2/2 HIV likely FENA -PO fluids -PRN replete -Regular diet -As tolerated
[2018-06-19] MEDS ORDERED: HEPARIN NA (PORCINE) 5,000 UNITS/ML 1ML VIAL SQ SCH (02:00)
[2018-06-19 07:03] VITALS: BP 127/56; PULSE 78; TEMP 97.8
[2018-06-19 09:26] LABS: BASO % 0.3 % (0-2.0); EOS % 0.5 % (0-4.5); HEMATOCRIT 35.1 % (35.4-49); HEMOGLOBIN 11.8 GM/dL (11.7-16.9); LYMPH % 40.5 % (8-40); MCH 29.1 pg (25.7-33.7); MCHC 33.7 g/dl (32.0-35.9); MEAN CELL VOLUME 86.2 fl (80-96); MEAN PLT VOLUME 7.4 fl (7.5-11.1); MONO % 16.8 % (3.8-10.2); NEUT % 41.9 % (42.8-82.8); PLATELET COUNT 171 K/MM3 (134-434); RBC 4.08 M/mm3 (4.00-5.60); RDW 15.5 % (11.9-15.9); WHITE BLOOD COUNT 2.1 K/mm3 (4.0-10.0)
--- NOTE | 2018-06-19 10:03 | PN ---
Progress Note (short form) - Note Progress Note: ID consult dictated imp/reccd 58 yo man with history of polysubstance use, HIV for 14 years, out of treatment for last 8 years- recently reestablished care at [facility] one month ago apparently lost his meds now in detox since 06/15 transferred to ER on 06/19 for svt no fevrs/chills SVT- per cardiology HIV- check cd4 count leukopenia most likely due to HIV as he has lost his meds suggest he f/u at his clinic to re-establish care and obtain medications gc/chlamydia screening history of polysubstance use d/w medical team Problem List - Problems (1) HIV (human immunodeficiency virus infection) Code(s): B20 - HUMAN IMMUNODEFICIENCY VIRUS [HIV] DISEASE (2) Supraventricular tachycardia Code(s): I47.1 - SUPRAVENTRICULAR TACHYCARDIA
--- NOTE | 2018-06-19 10:10 | EKG ---
Test Reason : Blood Pressure : / mmHG Vent. Rate : 099 BPM Atrial Rate : 099 BPM P-R Int : 128 ms QRS Dur : 086 ms QT Int : 326 ms P-R-T Axes : 075 066 044 degrees QTc Int : 418 ms NORMAL SINUS RHYTHM MODERATE VOLTAGE CRITERIA FOR LVH, MAY BE NORMAL VARIANT BORDERLINE ECG WHEN COMPARED WITH ECG OF 18-JUN-2018 22:51, NOTE RHYTHM CHANGE VENT. RATE HAS DECREASED Confirmed by SHIVAM WARE, GARETH ([id number]) on 06/19/2018 10:10:32 AM Referred By: Confirmed By:GARETH LANGLEY MD
--- NOTE | 2018-06-19 10:11 | EKG ---
Test Reason : Blood Pressure : / mmHG Vent. Rate : 147 BPM Atrial Rate : 075 BPM P-R Int : 000 ms QRS Dur : 098 ms QT Int : 282 ms P-R-T Axes : 000 069 048 degrees QTc Int : 441 ms SUPRAVENTRICULAR TACHYCARDIA MODERATE VOLTAGE CRITERIA FOR LVH, MAY BE NORMAL VARIANT JUNCTIONAL ST DEPRESSION, PROBABLY NORMAL BORDERLINE ECG WHEN COMPARED WITH ECG OF 18-JUN-2018 20:24, PREMATURE VENTRICULAR COMPLEXES ARE NO LONGER PRESENT Confirmed by SHIVAM WARE, GARETH ([id number]) on 06/19/2018 10:11:05 AM Referred By: Confirmed By:GARETH LANGLEY MD
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
--- NOTE | 2018-06-19 13:06 | ECHO ---
Name: BRENDAN SEVERINO Exam:Adult Echocardiogram Study Date: 06/19/2018 10:28 AM Age: 58 yrs Reason For Study: IV DRUG ABUSE Height: 68 in Weight: 152 lb BSA: 1.8 m2 MMode/2D Measurements & Calculations IVSd: 0.97 cm Ao root diam: 2.3 cm LVIDd: 4.5 cm LA dimension: 2.4 cm LVIDs: 3.3 cm LVPWd: 0.90 cm EDV(Teich): 93.1 ml LVOT diam: 2.0 cm ESV(Teich): 45.5 ml LAV (MOD-bp): 62.9 ml Doppler Measurements & Calculations MV E max bala: 61.6 cm/sec Ao V2 max: 107.2 cm/sec MV A max bala: 54.3 cm/sec Ao max P.6 mmHg MV E/A: 1.1 MV dec time: 0.14 sec (V,D): 2.4 cm2 LV V1 max P.6 mmHg MR max bala: 289.1 cm/sec LV V1 max: 81.0 cm/sec MR max P.4 mmHg PA V2 max: 86.9 cm/sec Med Peak E' Bala: 6.3 cm/sec PA max P.0 mmHg Med E/e': 9.8 Lat Peak E' Bala: 8.9 cm/sec Lat E/e': 6.9 Procedure A complete two-dimensional transthoracic echocardiogram was performed (2D, M-mode, Doppler and color flow Doppler). Left Ventricle The left ventricle is normal in size. Left ventricular systolic function is normal. Ejection Fraction = 55- 60%. No regional wall motion abnormalities noted. Right Ventricle The right ventricle is normal size. The right ventricular systolic function is normal. Atria The left atrial size is normal. Right atrial size is normal. Mitral Valve The mitral valve is normal in structure and function. There is mild mitral regurgitation. Tricuspid Valve The tricuspid valve is normal in structure and function. No tricuspid regurgitation. Aortic Valve The aortic valve is normal in structure and function. No aortic regurgitation is present. Pulmonic Valve The pulmonic valve is not well visualized. Great Vessels The aortic root is normal size. Pericardium/Pleura There is no pericardial effusion. Interpretation Summary The left ventricle is normal in size. Left ventricular systolic function is normal. No regional wall motion abnormalities noted. Ejection Fraction = 55-60%. The right ventricular systolic function is normal. The left atrial size is normal. Right atrial size is normal. There is mild mitral regurgitation. There is no pericardial effusion. Previous study is not available for comparison Kobe House MD 06/19/2018 01:05 PM
--- NOTE | 2018-06-19 14:25 | DS ---
Physical Exam: SUBJECTIVE: Patient seen and examined at bedside no acute events overnight patients HR is under control however he is complaining that he is hungry;' he deneies any CP/SOB/N/V fevers or chills OBJECTIVE: Vital Signs Period Temp Pulse Resp BP Sys/Tay Pulse Ox Last 24 Hr 97.8 F-98.1 F 78-117 19-20 96-127/56-74 98-100 PHYSICAL EXAM GENERAL: The patient is awake, alert, and fully oriented, in no acute distress. EYES: PEERLA: EOMI no scleral icterus NECK: no JVD; no lymphadenopathy LUNGS:CTA B/L; no rales, rhonchi or wheezing HEART: Regular rate and rhythm, S1, S2 without murmur, rub or gallop. ABDOMEN: Soft, nontender, nondistended, normoactive bowel sounds, no guarding, no rebound, no hepatosplenomegaly, no masses. EXTREMITIES: 2+ pulses, warm, well-perfused, no edema. PSYCH: Normal mood, normal affect. SKIN: Warm, dry, normal turgor, no rashes or lesions noted. LABS Laboratory Results - last 24 hr 06/18/18 06/18/18 06/19/18 23:15 23:15 01:03 WBC 2.9 L RBC 4.88 Hgb 14.2 Hct 42.2 MCV 86.4 MCH 29.2 MCHC 33.8 RDW 15.8 Plt Count 194 MPV 8.3 Absolute Neuts (auto) 1.3 L Total Counted 100 Neutrophils % 44.7 Neutrophils % (Manual) 45.6 Lymphocytes % 40.7 H Lymphocytes % (Manual) 39.3 Monocytes % 13.2 H Monocytes % (Manual) 14 H Eosinophils % 0.3 Eosinophils % (Manual) 0.3 Basophils % 1.1 Basophils % (Manual) 1.0 Nucleated RBC % 0 Platelet Estimate Adequate Platelet Comment No clumping noted Sodium 140 Potassium 4.8 Chloride 107 Carbon Dioxide 29 Anion Gap 4 L BUN 20 H Creatinine 1.1 Creat Clearance w eGFR 69.24 Random Glucose 98 Calcium 9.5 Phosphorus 6.1 H Magnesium 2.4 Total Bilirubin 0.2 AST 30 ALT 35 Alkaline Phosphatase 77 Creatine Kinase 107 Troponin I 0.02 0.02 Total Protein 8.1 Albumin 3.4 TSH 4.66 H 2.40 D 06/19/18 09:17 WBC 2.1 L RBC 4.08 Hgb 11.8 Hct 35.1 L D MCV 86.2 MCH 29.1 MCHC 33.7 RDW 15.5 Plt Count 171 MPV 7.4 L D Absolute Neuts (auto) 0.9 L Total Counted Neutrophils % 41.9 L Neutrophils % (Manual) Lymphocytes % 40.5 H Lymphocytes % (Manual) Monocytes % 16.8 H Monocytes % (Manual) Eosinophils % 0.5 Eosinophils % (Manual) Basophils % 0.3 Basophils % (Manual) Nucleated RBC % 0 Platelet Estimate Platelet Comment Sodium Potassium Chloride Carbon Dioxide Anion Gap BUN Creatinine Creat Clearance w eGFR Random Glucose Calcium Phosphorus Magnesium Total Bilirubin AST ALT Alkaline Phosphatase Creatine Kinase Troponin I Total Protein Albumin TSH HOSPITAL COURSE: Date of Admission:06/19/18 58 y/o male with PMH of HIV, insomnia, scaitica, polysubstance abusew who presented from [facility] due to HR being in the 150-160's and was found to be in SVT on EKG. he was given adenosine 6mg and 12mg and was given dilti=azem once and his HR came down. he was seen by cardio and got an ehco done of his heart which was normal. he was started on cardizem 120 daily and was discharged back to [facility] for detox- he will follow up with the liquid flavor compounder in one week in addition to his regular PCP Date of Discharge: 06/19/18 Minutes to complete discharge: 39 Discharge Summary Reason For Visit: SUPRAVENTRICULAR TACHYCARDIA Condition: Improved - Instructions Diet, Activity, Other Instructions: You came to the emergency room due to a very fast rate and were found to be in supraventricular tachycardia. We gave you medication to slow your heart rate down, performed an echocardiogram of your heart and had a liquid flavor compounder come to evaluate you. In addition, we also had our infectious disease doctor come to evaluate you. Your symptoms improved with medication and you were stable to go back to [facility]. Please resume all of your home medications: in addition, please take the medication Cardizem 120mg daily Please follow up with Dr. Christiansen within one week We are referring you to the liquid flavor compounder, Dr. House for you to follow up with in one week follow with your HIV doctor to start HIV treatment Please refrain from alcohol and drug use *if you begin to experience palpitations, chest pains, shortness of breath, nausea/vomiting please return to the emergency room immediately Referrals: Kobe House MD [Staff Physician] - 1 Week Disposition: TRANSFER ACUTE CARE/OTHER HOSP - Home Medications Comprehensive Discharge Medication List: Ambulatory Orders Diltiazem Cd [Cardizem Cd -] 120 mg PO DAILY #30 cap.cd.24h 06/19/18 Problem List - Problems (1) Supraventricular tachycardia Code(s): I47.1 - SUPRAVENTRICULAR TACHYCARDIA (2) Alcohol dependence with uncomplicated withdrawal Code(s): F10.230 - ALCOHOL DEPENDENCE WITH WITHDRAWAL, UNCOMPLICATED (3) Cocaine dependence Code(s): F14.20 - COCAINE DEPENDENCE, UNCOMPLICATED (4) HIV (human immunodeficiency virus infection) Code(s): B20 - HUMAN IMMUNODEFICIENCY VIRUS [HIV] DISEASE (5) Marijuana dependence Code(s): F12.20 - CANNABIS DEPENDENCE, UNCOMPLICATED This patient is new to me today: Yes Date on this admission: 06/19/18 Emergency Visit: Yes ED Registration Date: 06/19/18 Care time: The patient presented to the Emergency Department on the above date and was hospitalized for further evaluation of their emergent condition. Critical Care patient: No - Discharge Referral Referred to [facility] Med P.C.: No
--- NOTE | 2018-06-19 15:39 | PN ---
Teaching Attending Note Name of Resident: Jennifer Urbina ATTENDING PHYSICIAN STATEMENT I saw and evaluated the patient. I reviewed the resident's note and discussed the case with the resident. I agree with the resident's findings and plan as documented. SUBJECTIVE: aggravated as he was hungry. denied CP , no SOB, no palpitations declined exam. ASSESSMENT AND PLAN: 58 y/o man with h/o polysubstance abuse, and HIV with no n compliance who presented form [facility] due to tachycardia. He was found to have SVT. 1- SVTs; likely due to drug use. echo with no significant findings switch cardizem 30 q6 h to 120 mg daily f/u with dc 2- HIV: not compliant . recently started following with a new HIV in [place] . will refer back to him 3- polysubstance abuse: per [facility] records . he finished alcohol detox. no signs of withdrawal now cont care there dispo: dc to [facility]
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
== END 2018-06-19 13:50 | disposition other institution (70) ==
LOC: JER 22:19 → JERBED 06-19 00:27
PROVIDERS: ADMIT Internal Medicine; ATTEND Internal Medicine
PROC: 3E033GC Introduction of Other Therapeutic Substance into Peripheral Vein, Percutaneous Approach (ICD-10-PCS; principal; 2018-06-19)
PROC: 3E0337Z Introduction of Electrolytic and Water Balance Substance into Peripheral Vein, Percutaneous Approach (ICD-10-PCS; 2018-06-19)
DX: I47.1 Supraventricular tachycardia (principal); Z21 Asymptomatic human immunodeficiency virus [HIV] infection status; D72.819 Decreased white blood cell count, unspecified; F10.20 Alcohol dependence, uncomplicated; F14.10 Cocaine abuse, uncomplicated; F12.10 Cannabis abuse, uncomplicated; F17.210 Nicotine dependence, cigarettes, uncomplicated; G47.00 Insomnia, unspecified; M54.30 Sciatica, unspecified side; Z91.14 Patient's other noncompliance with medication regimen; R94.6 Abnormal results of thyroid function studies
CPT/HCPCS: 36415; 71045-TC-FY; 80053; 82550; 83735; 84100; 84443; 84484; 85025; 86359; 86360; 93005; 93010; 93306-TC; 96374; 96376; 99285-25; G0378; J7030